=== PATIENT | female | born 1995 | race African-American/Black ===

== ENCOUNTER 2016-04-14 05:21 | Emergency (ER) | payer OTHER ==
[~2016-04-14] VITALS: Ht 162.6 cm; Wt 149.1 kg
[2016-04-14 05:24] VITALS: BP 159/80; PULSE 114; RESP 18; TEMP 98; O2SAT 100
[2016-04-14 05:41] VITALS: BP 171/81; PULSE 106; RESP 18; O2SAT 100
[2016-04-14 05:44] VITALS: O2SAT 100
--- NOTE | 2016-04-14 05:51 | PD ---
HPI Chief Complaint: Syncope/Near-Syncope Time Seen by Provider: 05:31 Travel History International Travel<30 days: No Contact w/Intl Traveler<30days: No Traveled to known affect area: No History of Present Illness HPI The patient is a 20 year old female who presents to the [facility] emergency department with a history of reportedly having a syncopal event prior to arrival. The patient was sitting and talking with her friends and one of her friends dropped her phone on the floor. She looked over at the phone and that the last thing that she remembers. Her friends accompanied her to this emergency department visit and report that she looked over and then fell face first off of the chair onto the ground striking the left side of her head. The patient was immediately noted to be crying related to hitting her head. She did not have any seizure activity. She did not bite her tongue or lose control of her bowel or bladder. She denies having any chest pain, chest pressure, or shortness of breath. She denies feeling ill prior to this occurring. The patient denies any recent fevers, cough, congestion, neck pain, abdominal pain, vomiting, diarrhea, urinary symptoms, or neurologic symptoms. The patient reports that her last menstrual cycle began in October 2015. She reports that she has bleeding on a daily basis. She reports that prior to that she had not had a menstrual cycle for 4-5 months. She reports that as long as she can remember she's had irregular cycles. She reports that in the past she had been tried on oral contraceptives to regulate her menstrual cycle, however she developed migraines and discontinued them. She was last seen by a soft shoe dancer approximately a year ago. She denies any prior history of anemia or blood transfusion. [facility] Past Medical History Narrative Medical The patient's past medical history is significant for irregular menstrual cycles , obesity. Medical History: Denies Significant Hx Tetanus Vaccination: Unknown Influenza Vaccination: No ?: Not LMP: NOW Past Surgical History Narrative Surgical The patient's past surgical history is reportedly none. Surgical History: No Previous Surgery Social History Alcohol Use: No Tobacco Use: No Substance Use: No Allergies-Medications (Allergen,Severity, Reaction): Coded Allergies: No Known Allergies (Unverified , 04/14/16) Reported Meds & Prescriptions Reported Meds & Active Scripts Active Ferrous Sulfate 325 Mg Tab 325 Mg PO DAILY Review of Systems Except as stated in HPI: all other systems reviewed are Neg General / Constitutional: No: Fever Eyes: No: Visual changes HENT: No: Headaches Cardiovascular: Positive: Syncope, No: Chest Pain or Discomfort, Dyspnea on exertion, Edema Respiratory: No: Shortness of Breath Gastrointestinal: No: Abdominal Pain Genitourinary: No: Dysuria Musculoskeletal: No: Pain Skin: No Rash Neurologic: Positive: Syncope, Headache, No: Weakness, Focal Abnormalities, Change in Mentation, Slurred Speech, Sensory Disturbance Psychiatric: No: Depression Endocrine: No: Polydipsia Hematologic/Lymphatic: No: Easy Bruising Physical Exam Narrative General: The patient is a well-developed well-nourished female in no acute distress. Head and Neck exam: Head is normocephalic, with evidence of trauma to the left side of the forehead. The patient is noted to have a small hematoma developing over the left side of the forehead above the left eyebrow. The patient has tenderness at this site. The patient has no step-off or crepitus. Eyes: EOMI, pupils are equal round and reactive to light. Nose: Midline septum with pink mucous membranes Mouth: Dentition unremarkable. Moist mucus membranes. Posterior oropharynx is not erythematous. No tonsillar hypertrophy. Uvula midline. Airway patent. Neck: No palpable lymphadenopathy. No nuchal rigidity. No thyromegaly. Cardiovascular: Sinus tachycardia in the low 100s without murmurs, gallops, or rubs. No pulse deficit to the extremities. Lungs: Clear to auscultation bilaterally. No wheezes, rhonchi, or rales. Abdomen: Soft, without tenderness to palpation in all 4 quadrants of the abdomen. No guarding, rebound, or rigidity. Normal bowel sounds are audible. Extremities: No clubbing, cyanosis, or edema. 2+ pulses in all 4 extremities. No calf tenderness on palpation. Back: No spinous process tenderness to palpation. No costovertebral angle tenderness to palpation. Neurologic Exam: Grossly nonfocal. Data Data Last Documented VS Vital Signs Date Time Temp Pulse Resp B/P Pulse Ox O2 Delivery O2 Flow Rate FiO2 04/14/16 08:29 87 20 180/69 100 04/14/16 06:36 Room Air 04/14/16 05:24 98.0 Orders Electrocardiogram (04/14/16 05:39) Complete Blood Count With Diff (04/14/16 05:39) Comprehensive Metabolic Panel (04/14/16 05:39) Prothrombin Time / Inr (Pt) (04/14/16 05:39) Act Partial Throm Time (Ptt) (04/14/16 05:39) Urinalysis - C+S If Indicated (04/14/16 05:39) Beta Hcg (Quant/Titer) (04/14/16 05:39) D-Dimer (04/14/16 05:39) Magnesium (Mg) (04/14/16 05:39) Chest, Single Ap (04/14/16 05:39) Iv Access Insert/Monitor (04/14/16 05:39) Ecg Monitoring (04/14/16 05:39) Oximetry (04/14/16 05:39) Ed Urine Pregnancytest Poc (04/14/16 05:39) Thyroid Stimulating Hormone (04/14/16 05:39) Orthostatic Vital Signs (04/14/16 05:51) Sodium Chlor 0.9% 1000 Ml Inj (Ns 1000 M (04/14/16 06:00) Ct Brain W/O Iv Contrast(Rout) (04/14/16 05:51) Acetaminophen (Tylenol) (04/14/16 06:00) Ice / Cold Pack PRN (04/14/16 05:51) Potassium Chloride (Kcl) (04/14/16 07:15) Labs Laboratory Tests Test 04/14/16 04/14/16 05:45 06:30 White Blood Count 7.5 TH/MM3 Red Blood Count 3.80 MIL/MM3 Hemoglobin 9.3 GM/DL Hematocrit 29.0 % Mean Corpuscular Volume 76.3 FL Mean Corpuscular Hemoglobin 24.5 PG Mean Corpuscular Hemoglobin 32.1 % Concent Red Cell Distribution Width 15.9 % Platelet Count 427 TH/MM3 Mean Platelet Volume 8.0 FL Neutrophils (%) (Auto) 54.0 % Lymphocytes (%) (Auto) 36.2 % Monocytes (%) (Auto) 7.4 % Eosinophils (%) (Auto) 1.5 % Basophils (%) (Auto) 0.9 % Neutrophils # (Auto) 4.1 TH/MM3 Lymphocytes # (Auto) 2.7 TH/MM3 Monocytes # (Auto) 0.6 TH/MM3 Eosinophils # (Auto) 0.1 TH/MM3 Basophils # (Auto) 0.1 TH/MM3 CBC Comment AUTO DIFF Differential Comment AUTO DIFF CONFIRMED Platelet Estimate NORMAL Platelet Morphology Comment NORMAL Ovalocytes 1+ Prothrombin Time 10.7 SEC Prothromb Time International 1.0 RATIO Ratio Activated Partial 29.8 SEC Thromboplast Time D-Dimer Quantitative (PE/DVT) 0.38 MG/L FEU Sodium Level 140 MEQ/L Potassium Level 3.4 MEQ/L Chloride Level 106 MEQ/L Carbon Dioxide Level 25.5 MEQ/L Anion Gap 9 MEQ/L Blood Urea Nitrogen 15 MG/DL Creatinine 0.80 MG/DL Estimat Glomerular Filtration 92 ML/MIN Rate Random Glucose 105 MG/DL Calcium Level 8.6 MG/DL Magnesium Level 2.0 MG/DL Total Bilirubin 0.3 MG/DL Aspartate Amino Transf 12 U/L (AST/SGOT) Alanine Aminotransferase 23 U/L (ALT/SGPT) Alkaline Phosphatase 75 U/L Total Protein 7.6 GM/DL Albumin 3.6 GM/DL Thyroid Stimulating Hormone 2.320 uIU/ML 3rd Gen Human Chorionic Gonadotropin, LESS THAN 1 Quant MIU/ML Urine Color YELLOW Urine Turbidity CLEAR Urine pH 6.0 Urine Specific [place] 1.028 Urine Protein TRACE mg/dL Urine Glucose (UA) NEG mg/dL Urine Ketones NEG mg/dL Urine Occult Blood LARGE Urine Nitrite NEG Urine Bilirubin NEG Urine Urobilinogen 2.0 MG/DL Urine Leukocyte Esterase NEG Urine RBC /hpf Urine WBC LESS THAN 1 /hpf Urine Squamous Epithelial <1 /hpf Cells Urine Bacteria RARE /hpf Urine Mucus FEW /lpf Microscopic Urinalysis Comment CULT NOT INDICATED MDM Medical Decision Making Medical Screen Exam Complete: Yes Emergency Medical Condition: Yes Medical Record Reviewed: Yes Interpretation(s) Last Impressions Head CT 04/14/1651 Signed Impressions: Service Date/Time: Thursday, April 14, 2016 06:03 - CONCLUSION: Negative noncontrast head CT. Phi De Souza MD Chest X-Ray 04/14/1686 Signed Impressions: Service Date/Time: Thursday, April 14, 2016 06:05 - CONCLUSION: No evidence of acute cardiopulmonary disease. Phi De Souza MD Differential Diagnosis Symptomatic anemia, versus PE, versus vasovagal syncope, versus orthostasis, versus dehydration Narrative Course During the course of the patients emergency department visit, the patients history, examination, and differential diagnosis were reviewed with the patient. The patient had IV access obtained and blood work sent for analysis. The patient was placed on a monitoring engineer with oximetry and blood pressure monitoring. An EKG was done on arrival. The patient's EKG shows a sinus tachycardia with nonspecific T-wave abnormalities. T waves are noted to be inverted in lead 3. The patient had an Accu-Chek done on arrival which shows a blood sugar of 113. Orthostatic vital signs were remarkable for tachycardia with standing. The patient was given a fluid bolus. The patient was provided normal saline 1 L IV fluid bolus. . The patients laboratory studies were reviewed and remarkable for a white count of a white count of 7.5, hemoglobin 9.3, platelets 427 with a normal differential. CMP is remarkable for potassium 3.4 which was supplemented orally with 20 mEq potassium chloride, AST 12, tests is negative, TSH within normal limits. PT PTT unremarkable, d-dimer 0.38, decreasing likelihood of pulmonary embolism in this patient with no other significant risk factors. Urinalysis is remarkable for large blood, however the patient is on her menstrual cycle. Suspect that the patient's symptoms and syncopal event are partially related to orthostasis and a component of anemia. Radiology studies were reviewed and remarkable for a CT scan of the brain that is unremarkable. CXR shows no acute abnormality. Her symptoms are likely related to a combination of under hydration and anemia from DUB. She is instructed to f/u with a soft shoe dancer CAROL to discuss the DuB further and in the mean time start an iron supplement. She is instructed that her BP was elevated today and she needs to f/u to have this rechecked. She is instructed to push fluids for hydration. The patient is resting comfortably and feels better, is alert and in no distress. The patients results and examination findings were discussed with the patient. The repeat examination is unremarkable and benign. The history, exam, diagnostic testing, and current condition do not suggest any significant pathology to warrant further testing, continued ED treatment, admission, or surgical evaluation at this point. The vital signs have been stable. The patient does not have uncontrollable pain, intractable vomiting, or other significant symptoms. The patient's condition is stable and appropriate for discharge. The patient will pursue further outpatient evaluation with a primary care physician or other designated or consulting physician as indicated in the discharge instructions. The patient expressed understanding and was agreeable with this plan. Diagnosis Primary Impression: Syncope Qualified Code: R55 - Syncope, unspecified syncope type Additional Impressions: Anemia Qualified Code: D50.9 - Iron deficiency anemia, unspecified iron deficiency anemia type Dysfunctional uterine bleeding Referrals: Keily Alfredo MD 1 week Patient Instructions: Dysfunctional Uterine Bleeding (ED), General Instructions Med/Other Pt SpecificInfo: Prescription(s) given Scripts Ferrous Sulfate 325 Mg [id number] Mg PO DAILY #30 TAB Ref 0 Prov:Petty Bell MD 04/14/16 Disposition: 01 DISCHARGE HOME Condition: Stable Petty Bell MD Apr 14, 2016 05:50
[2016-04-14 05:58] LABS: AUTOMATED NEUTROPHIL # 4.1 TH/MM3 (1.8-7.7); BASOPHIL # 0.1 TH/MM3 (0-0.2); BASOPHIL % 0.9 % (0.0-2.0); EOSINOPHIL # 0.1 TH/MM3 (0-0.4); EOSINOPHIL % 1.5 % (0.0-4.0); LYMPH % 36.2 % (9.0-44.0); LYMPHOCYTE # 2.7 TH/MM3 (1.0-4.8); MEAN CELL VOLUME 76.3 FL (80.0-100.0); MEAN CORPUSCULAR HEMOGLOBIN 24.5 PG (27.0-34.0); MEAN CORPUSCULAR HGB CONC 32.1 % (32.0-36.0); MONO % 7.4 % (0.0-8.0); PLATELET COUNT 427 TH/MM3 (150-450); RED CELL DISTRIBUTION WIDTH 15.9 % (11.6-17.2); WHITE BLOOD COUNT 7.5 TH/MM3 (4.0-11.0)
[2016-04-14] MEDS ORDERED: ACETAMINOPHEN 325 MG TAB PO ONE (06:00)
[2016-04-14] MEDS ORDERED: SODIUM CHLOR 0.9% 1000 ML INJ 1,000 ML IV ONE (06:00)
[2016-04-14 06:09] LABS: HEMO FLAGS AUTO DIFF
[2016-04-14 06:11] LABS: APTT (PATIENT) 29.8 SEC (24.3-30.1); PROTHROMBIN TIME - PATIENT 10.7 SEC (9.8-11.6)
[2016-04-14 06:14] VITALS: BP_SYST 152; BP_SYST 159; BP_SYST 160; BP_DIAS 68; BP_DIAS 72
--- NOTE | 2016-04-14 06:17 | RADRPT ---
EXAM DATE/TIME: 04/14/2016 06:03 [facility] COMPARISON: No previous studies available for comparison. INDICATIONS : Syncopal episode, left facial pain. RADIATION DOSE: 51.04 CTDIvol (mGy) MEDICAL HISTORY : None SURGICAL HISTORY : None. ENCOUNTER: Initial ACUITY: 1 day PAIN SCALE: 6/10 LOCATION: Left cranial TECHNIQUE: Multiple contiguous axial images were obtained of the head. Using automated exposure control and adj ustment of the mA and/or kV according to patient size, radiation dose was kept as low as reasonably a chievable to obtain optimal diagnostic quality images. FINDINGS: CEREBRUM: The ventricles are normal for age. No evidence of midline shift, mass lesion, hemorrhage or acute in farction. No extra-axial fluid collections are seen. POSTERIOR FOSSA: The cerebellum and brainstem are intact. The 4th ventricle is midline. The cerebellopontine angle i s unremarkable. EXTRACRANIAL: The visualized portion of the orbits is intact. SKULL: The calvaria is intact. No evidence of skull fracture. CONCLUSION: Negative noncontrast head CT. Phi De Souza MD on April 14, 2016 at 6:14 Board Certified Radiologist. This report was verified electronically.
[2016-04-14 06:21] LABS: ALT (GPT) 23 U/L (9-42); ANION GAP 9 MEQ/L (5-15); AST (GOT) 12 U/L (16-38); BICARBONATE 25.5 MEQ/L (21.0-32.0); BLOOD UREA NITROGEN 15 MG/DL (7-18); CHLORIDE 106 MEQ/L (98-107); GLOMERULAR FILTRATION RATE 92 ML/MIN (>89); POTASSIUM 3.4 MEQ/L (3.5-5.1); SODIUM (NA) 140 MEQ/L (136-145)
[2016-04-14 06:31] LABS: ALKALINE PHOSPHATASE 75 U/L (45-117); BETA HCG QUANT LESS THAN 1 MIU/ML (0-5); TOTAL BILIRUBIN ADULT 0.3 MG/DL (0.2-1.0)
--- NOTE | 2016-04-14 06:32 | RADRPT ---
EXAM DATE/TIME: 04/14/2016 06:05 [facility] COMPARISON: No previous studies available for comparison. INDICATIONS : Short of breath after syncopal episode. MEDICAL HISTORY : None. SURGICAL HISTORY : None. ENCOUNTER: Initial ACUITY: 1 day PAIN SCORE: 0/10 LOCATION: Bilateral chest FINDINGS: A single view of the chest demonstrates the lungs to be symmetrically aerated without evidence of mas s, infiltrate or effusion. The cardiomediastinal contours are unremarkable. Osseous structures are intact. CONCLUSION: No evidence of acute cardiopulmonary disease. Phi De Souza MD on April 14, 2016 at 6:30 Board Certified Radiologist. This report was verified electronically.
[2016-04-14 06:36] VITALS: BP 162/104; PULSE 96; RESP 18; O2SAT 99
[2016-04-14 06:54] LABS: PLATELET ESTIMATE SMEAR NORMAL (NORMAL); SCAN/DIFF AUTO DIFF CONFIRMED
[2016-04-14 06:55] LABS: OVALOCYTES 1+ (NORMAL); PLATELET MORPHOLOGY NORMAL (NORMAL)
[2016-04-14 07:08] LABS: BACTERIA, URINE RARE /hpf; BLOOD, URINE LARGE (NEG); GLUCOSE,URINE NEG (NEG); KETONE, URINE NEG (NEG); MUCUS URINE FEW /lpf (OCC); NITRITE,URINE NEG (NEG); SQUAMOUS EPITHELIAL CELL URINE <1 /hpf (0-5); URINE COLOR YELLOW (YELLW/STRAW)
[2016-04-14 07:09] LABS: COMMENT (UR) CULT NOT INDICATED; CULTURE IF INDICATED CULT NOT INDICATED
[2016-04-14] MEDS ORDERED: POTASSIUM CHLORIDE 20 MEQ CONTROLLED RELEASE TAB PO ONE (07:15)
[2016-04-14] MEDS ORDERED: FERR325T PO (07:28)
[2016-04-14 08:29] VITALS: BP 180/69
--- NOTE | 2016-04-14 15:43 | EKG ---
Date Performed: 04/14/2016 Time Performed: 05:44:09 PTAGE: 20 years EKG: SINUS TACHYCARDIA NONSPECIFIC T-WAVE ABNORMALITY ABNORMAL RHYTHM ECG NO PREVIOUS TRACING DOCTOR: Lebron Larios Interpretating Date/Time 04/14/2016 15:40:39
== END 2016-04-14 08:30 | disposition home or self-care (01) ==
LOC: NEPC 05:21
DX: R55 Syncope and collapse (principal); D50.9 Iron deficiency anemia, unspecified; N93.8 Other specified abnormal uterine and vaginal bleeding
CPT/HCPCS: 70450; 71010; 80053; 81001; 83735; 84443; 84702; 84703; 85025; 85379; 85610; 85730; 93005; 96360; 99284; J7030

== ENCOUNTER 2016-06-19 15:06 | Emergency (ER) | payer OTHER ==
[~2016-06-19 15:06] MED LIST: FERR325T PO
[2016-06-19 15:08] VITALS: BP 142/100; PULSE 82; RESP 20; TEMP 98.4; O2SAT 99
--- NOTE | 2016-06-19 15:48 | PD ---
HPI Chief Complaint: Headache Time Seen by Provider: 15:48 Travel History International Travel<30 days: No Contact w/Intl Traveler<30days: No Traveled to known affect area: No History of Present Illness HPI 20-year-old female presents to emergency Department with complaint of a frontal headache that has been on and off for one week. She reports history of similar headaches but they have not lasted this long. Denies upper respiratory symptoms. Denies fever, chills, nausea, vomiting. Headache was gradual onset. Described as a throbbing sensation. Rates the pain 7/10. Denies confusion, disorientation, change in mentation, slurred speech. Denies focal deficits or weakness. Denies photophobia, phonophobia. Says the headache may be because she hasn't been wearing her glasses like she normally does. It is relieved by ibuprofen and Aleve. No known allergies. History of anemia. No other modifying factors or associated signs and symptoms. PFSH Past Medical History Anemia: Yes ?: Not Social History Alcohol Use: No Tobacco Use: No Substance Use: No Allergies-Medications (Allergen,Severity, Reaction): Coded Allergies: No Known Allergies (Unverified , 06/19/16) Reported Meds & Prescriptions Reported Meds & Active Scripts Active Ibuprofen 800 Mg Tab 800 Mg PO Q6HR PRN Ferrous Sulfate 325 Mg Tab 325 Mg PO DAILY Review of Systems Except as stated in HPI: all other systems reviewed are Neg Physical Exam Narrative GENERAL: Well-nourished, well-developed female patient, in no acute distress; patient sitting comfortably in a well lit room playing on her phone SKIN: Warm and dry. HEAD: Atraumatic. Normocephalic. No facial droop noted. Tongue midline. EYES: Pupils equal and round at 4 mm with brisk reaction. No scleral icterus. No injection or drainage. PERRLA. EOMI. ENT: Mucosa pink and moist. Airway patent. NECK: Trachea midline. No lymphadenopathy. CARDIOVASCULAR: Regular rate and rhythm. No murmur appreciated. RESPIRATORY: No accessory muscle use. Clear to auscultation. Breath sounds equal bilaterally. GASTROINTESTINAL: Abdomen soft, non-tender, nondistended. Hepatic and splenic margins not palpable. Bowel sounds are active 4 quadrants. MUSCULOSKELETAL: No obvious deformities. No clubbing. No cyanosis. No edema. NEUROLOGICAL: Awake and alert. Oriented 3. No obvious cranial nerve deficits. Motor grossly within normal limits. Normal speech. No ataxia. No mid -line drift. Moves all extremities. 5/5 strength to all extremities. PSYCHIATRIC: Appropriate mood and affect; insight and judgment normal. Data Data Last Documented VS Vital Signs Date Time Temp Pulse Resp B/P Pulse Ox O2 Delivery O2 Flow Rate FiO2 06/19/16 15:08 98.4 82 20 142/100 99 Room Air Orders Ibuprofen (Motrin) (06/19/16 16:00) [facility] Medical Decision Making Medical Screen Exam Complete: Yes Emergency Medical Condition: Yes Medical Record Reviewed: Yes Differential Diagnosis Acute headache, tension headache, migraine headache Narrative Course 20-year-old female with complaint of headache. She has had consistent headaches in the past but haven't lasted as long. The patient appears comfortable in the room. She is sitting in a well lit room in a chair and playing on her phone. I did review the patient's chart and she was seen here on April 14 after a syncopal episode and diagnosed with anemia. She did have a CT scan on April 14 which was unremarkable. I do not feel another CT scan is necessary at this time. She says her headaches are relieved with ibuprofen and Aleve. I will order ibuprofen and monitor the patient for decrease in headache prior to discharge. Ibuprofen ordered. Patient reports improvement in headache. Ibuprofen prescribed for home. Patient verbalizes understanding and agreement with treatment plan. Patient is medically cleared and stable for discharge. Discussed reasons to return to the emergency department. Instructed patient to follow up with primary care provider. Patient agrees with treatment plan. The patients vital signs are stable and the patient is stable for outpatient follow-up and treatment. Patient discharged home, stable and in no acute distress. Diagnosis Primary Impression: Cephalgia Qualified Code: R51 - Nonintractable headache, unspecified chronicity pattern , unspecified headache type Referrals: Primary Care Physician Patient Instructions: Acute Headache (ED), General Headache (ED), General Instructions, Migraine Headache (ED), Tension Headache (ED) Departure Forms: School Release, Return to School Date: Jun 21, 2016 Tests/Procedures Additional Instructions: Ibuprofen or Tylenol as directed and as needed to reduce headache Get plenty of rest: do not over sleep rest and relax in a dark, quiet room as needed Place an ice pack on the back of her neck to reduce head pain as needed Keep a headache diary of what triggers her headaches and what treatment is most effective Avoid identifiable triggers Avoid smoking, alcohol and caffeine consumption Reduce stress Follow-up with primary care provider within 1-2 days Follow-up with neurology Return immediately to the emergency department with worsening symptoms Med/Other Pt SpecificInfo: Prescription(s) given Scripts Ibuprofen 800 Mg [id number] Mg PO Q6HR PRN (PAIN) #30 TAB Ref 0 Prov:Candelaria Condon 06/19/16 Disposition: 01 DISCHARGE HOME Condition: Stable Candelaria Condon Jun 19, 2016 15:48
[2016-06-19] MEDS ORDERED: IBUP800T23 PO (15:55)
[2016-06-19] MEDS ORDERED: IBUPROFEN 800 MG TAB PO ONE (16:00)
== END 2016-06-19 16:43 | disposition home or self-care (01) ==
LOC: NEPK 15:06
DX: R51 Headache (principal)
CPT/HCPCS: 99283